=== PATIENT | female | born 1935 | race Two or more races ===

== ENCOUNTER 2020-09-29 22:43 | Emergency (ER) | payer OTHER ==
[~2020-09-29] VITALS: Ht 157.5 cm; Wt 71.2 kg
[2020-09-29] MEDS ORDERED: TENORMIN25 MG (23:15)
== END 2020-09-30 01:12 | disposition home or self-care (01) ==
LOC: ER 22:43
DX: S01.521A Laceration with foreign body of lip, initial encounter (principal); W18.09XA Striking against other object with subsequent fall, initial encounter; Y93.89 Activity, other specified; Y92.488 Other paved roadways as the place of occurrence of the external cause; Y99.8 Other external cause status

== ENCOUNTER 2020-10-06 15:21 | Emergency (ER) | payer OTHER ==
[~2020-10-06] VITALS: Ht 165.1 cm; Wt 68.0 kg
[~2020-10-06 15:21] MED LIST: TENORMIN25 MG
== END 2020-10-06 17:51 | disposition home or self-care (01) ==
LOC: ER 15:21
DX: Z48.02 Encounter for removal of sutures (principal)

== ENCOUNTER 2021-10-10 15:46 | Outpatient (CLI) | payer OTHER | END 2021-10-10 16:00 | disposition home or self-care (01) | LOC: PPH VACUNA 15:46 | PROVIDERS: ATTEND Emergency Medicine Pediatric Emergency Medicine | DX: Z23 Encounter for immunization (principal) ==